=== PATIENT | male | born 1965 | race Caucasian/White ===

== ENCOUNTER 2017-08-22 14:25 | Emergency (ER) | payer OTHER ==
[2017-08-22 14:33] VITALS: TEMP 97.6; BMI 25.1
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
[2017-08-22 16:59] VITALS: BP 151/90; PULSE 72; RESP 18; O2SAT 98
== END 2017-08-22 17:00 | disposition home or self-care (01) ==
LOC: H.ER 14:25
DX: M54.2 Cervicalgia (principal); V43.52XA Car driver injured in collision with other type car in traffic accident, initial encounter; Y92.410 Unspecified street and highway as the place of occurrence of the external cause; J45.909 Unspecified asthma, uncomplicated; Z88.0 Allergy status to penicillin